=== PATIENT | female | born 1980 | race Two or more races ===

== ENCOUNTER → 2017-04-04 | Emergency (ER) | payer OTHER ==
[~2017-04-04] VITALS: Ht 160 cm; Wt 93.0 kg
[~2017-04-04] MED LIST: PRENATABS FA T1 EACH
== END | disposition home or self-care (01) ==
LOC: ER 10:34
DX: O26.892 Other specified pregnancy related conditions, second trimester (principal); S30.0XXA Contusion of lower back and pelvis, initial encounter; W18.39XA Other fall on same level, initial encounter; Y93.89 Activity, other specified; Y92.098 Other place in other non-institutional residence as the place of occurrence of the external cause; Y99.8 Other external cause status; Z34.82 Encounter for supervision of other normal pregnancy, second trimester